=== PATIENT | female | born 1980 | race Caucasian/White ===

== ENCOUNTER 2018-12-17 04:46 | Emergency (ER) | payer OTHER ==
[~2018-12-17] VITALS: Ht 167.6 cm; Wt 88.0 kg
[2018-12-17 04:51] VITALS: Ht 167.6 cm; Wt 88.0 kg
[2018-12-17 06:41] VITALS: BP 148/93
== END 2018-12-17 06:41 | disposition home or self-care (01) ==
LOC: ED 04:46
DX: J45.901 Unspecified asthma with (acute) exacerbation (principal)
CPT/HCPCS: 87804; J7512; J7613; J7644

== ENCOUNTER 2019-10-21 23:34 | Emergency (ER) | payer OTHER ==
[~2019-10-21] VITALS: Ht 162.6 cm; Wt 87.1 kg
[2019-10-21 23:44] VITALS: Ht 162.6 cm; Wt 87.1 kg
[2019-10-22 01:01] LABS: BASOPHIL % 0.5 % (0-2); PLATELET COUNT 268 x10^3mcL (130-400)
[2019-10-22 01:02] LABS: RED CELL DISTRIBUTION WIDTH 19.5 % (11.5-14.5)
[2019-10-22 01:16] LABS: FREE T4 1.15 ng/dL (0.76-1.46); FREE THYROXINE INDEX 3.3 ug/dL (1.4-4.5); T4(THYROXINE) 10.5 ug/dL (4.7-13.3)
[2019-10-22 01:30] LABS: CALCIUM 8.5 mg/dL (8.5-10.1); CARBON DIOXIDE 24.9 mmol/L (21-32); CHLORIDE SERUM 100 mmol/L (98-107); CREATININE SERUM 0.6 mg/dL (0.6-1.0); GFR1 > 60 mL/min; GLUCOSE SERUM 132 mg/dL (74-106); SODIUM SERUM 136 mmol/L (136-145)
[2019-10-22 01:35] LABS: ALBUMIN 3.8 g/dL (3.4-5.0); ALKALINE PHOSPHATASE 91 U/L (46-116); ALT/SGPT 52 U/L (14-59); AST/SGOT 22 U/L (15-37); BILIRUBIN TOTAL 0.5 mg/dL (0.20-1.00)
[2019-10-22 02:34] LABS: T3 TOTAL 1.09 ng/mL
[2019-10-22 03:27] VITALS: BP 112/76
== END 2019-10-22 03:27 | disposition home or self-care (01) ==
LOC: ED 23:34
PROVIDERS: Emergency Medicine
DX: R07.89 Other chest pain (principal); R06.02 Shortness of breath; J45.909 Unspecified asthma, uncomplicated
CPT/HCPCS: 36415; 83880; 84439; 85378; J7512; Q0092

== ENCOUNTER 2020-09-14 20:35 | Emergency (ER) | payer OTHER ==
[~2020-09-14] VITALS: Ht 162.6 cm; Wt 87.1 kg
[2020-09-14 20:42] VITALS: BP 160/89; Ht 162.6 cm; Wt 87.1 kg
== END 2020-09-14 21:50 | disposition home or self-care (01) ==
LOC: ED 20:35
DX: J45.901 Unspecified asthma with (acute) exacerbation (principal)